=== PATIENT | female | born 1995 | race African-American/Black ===

== ENCOUNTER 2016-05-07 21:26 | Observation (INO) | payer MEDICAID, OTHER ==
[~2016-05-07] VITALS: Ht 154.9 cm; Wt 45.3 kg
[~2016-05-07 21:26] MED LIST: MACR100C PO
[2016-05-07 21:27] VITALS: BP 127/60; PULSE 112; RESP 20; TEMP 98.2; O2SAT 96
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
[2016-05-07] MEDS ORDERED: BUPIVACAINE HCL PF 0.5% 10 ML VIAL INFIL ONE (22:15)
[2016-05-07] MEDS ORDERED: LIDOCAINE HCL 1% 50 ML VIAL INFIL ONE (22:15)
[2016-05-07] MEDS ORDERED: TETANUS/DIPHTHERIA TOXOID ADULT 0.5 ML VIAL IM ONE (22:15)
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
[2016-05-07 23:34] LABS: AUTOMATED NEUTROPHIL # 6.9 TH/MM3 (1.8-7.7); BASOPHIL % 0.4 % (0.0-2.0); EOSINOPHIL % 0.5 % (0.0-4.0); HEMO FLAGS DIFF FINAL; LYMPH % 6.6 % (9.0-44.0); LYMPHOCYTE # 0.5 TH/MM3 (1.0-4.8); MEAN CELL VOLUME 88.1 FL (80.0-100.0); MEAN CORPUSCULAR HEMOGLOBIN 30.5 PG (27.0-34.0); MEAN CORPUSCULAR HGB CONC 34.6 % (32.0-36.0); NEUT % 86.5 % (16.0-70.0); PLATELET COUNT 298 TH/MM3 (150-450); RED BLOOD COUNT 4.54 MIL/MM3 (4.00-5.30); RED CELL DISTRIBUTION WIDTH 12.6 % (11.6-17.2)
[2016-05-07 23:52] LABS: BICARBONATE 25.3 MEQ/L (21.0-32.0)
[2016-05-08] VITALS (8 sets, daily range): BP systolic 94–127; BP diastolic 41–68; PULSE 70–90; RESP 16–21; TEMP 97.8–98.8; O2SAT 97–99
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
[2016-05-08] MEDS ORDERED: SODIUM CHLORIDE 0.9% FLUSH 5 ML FLUSH FLUSH PRN (00:45)
[2016-05-08] MEDS ORDERED: MORPHINE SULFATE 4 MG/ML INJ IV PUSH PRN (00:45)
[2016-05-08] MEDS ORDERED: NALOXONE HCL 0.4 MG/ML AMP IV PRN ×2 (00:45→16:00)
[2016-05-08] MEDS ORDERED: ONDANSETRON HCL 4 MG/2 ML VIAL IVP PRN (00:45)
[2016-05-08] MEDS: SODIUM CHLOR 0.9% 1000 ML INJ 1,000 ML IV SCH ×3 (00:57→16:20)
[2016-05-08] MEDS ORDERED: ONDANSETRON HCL 4 MG/2 ML VIAL IV PUSH ONE (07:52)
[2016-05-08] MEDS ORDERED: PROPOFOL 200 MG/20 ML AMP IV ONE (07:52)
[2016-05-08] MEDS ORDERED: LACTATED RINGER'S 1000 ML INJ 1,000 ML IV ONE (07:52)
[2016-05-08] MEDS ORDERED: LIDOCAINE HCL 2% 50 ML VIAL ONE (10:26)
[2016-05-08] MEDS ORDERED: BUPIVACAINE HCL PF 0.5% 30 ML VIAL ONE (10:26)
[2016-05-08] MEDS ORDERED: BACITRACIN TOP OINT 15 GM TUBE ONE (10:26)
[2016-05-08] MEDS ORDERED: DEXAMETHASONE SOD PHOS 4 MG/ML VIAL ONE (10:49)
[2016-05-08] MEDS ORDERED: MIDAZOLAM HCL 2 MG/2 ML VIAL ONE (10:49)
[2016-05-08] MEDS ORDERED: NEOMYCIN/POLYMYXIN 1 ML G.U. IRRIGANT XX ONE (11:24)
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
[2016-05-08] MEDS ORDERED: DO NOT ADM ANY ANTICOAGULANT DRUGS XX PRN (14:39)
--- NOTE | 2016-05-08 14:56 | PD.OP ---
Operative Report Preoperative Diagnosis: (1) Open fracture of finger of left hand Postoperative Diagnosis: (1) Open displaced fracture of proximal phalanx of left little finger (2) Laceration of flexor muscle, fascia and tendon of left little finger at wrist and hand level, initial encounter (3) Laceration of extensor muscle, fascia and tendon of left little finger at wrist and hand level, initial encounter (4) Digital nerve laceration, finger (5) Laceration of left little finger Procedure: exploration wash open reduction and internal fixation proximal phalanx repair of flexor digitorum profundus and flexor digitorum superificialis zone II repair extensor tendon zone IV repair ulnar digital nerve repair laceration left little finger Anesthesia: general Surgeon: Hai Gomes Rubber Tile Floor Layer(s): radha Operation and Findings: near complete amputation left little finger open displaced fracture proximal phalanx neck laceration of both FDP and FDS zone II laceration extensor apparatus zone IV laceration of the ulnar digital nerve Hai Gomes MD May 08, 2016 14:56
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
[2016-05-08] MEDS ORDERED: ACETAMINOPHEN 325 MG TAB PO PRN (16:00)
[2016-05-08] MEDS: ACETAMINOPHEN/HYDROcodone 325 MG/5 MG TAB PO PRN (19:25)
[2016-05-08] MEDS: SODIUM CHLORIDE 0.9% FLUSH 5 ML FLUSH FLUSH SCH (21:35)
[2016-05-09 00:48] VITALS: BP 107/56; PULSE 83; RESP 17; TEMP 98.8; O2SAT 100
[2016-05-09] MEDS: ACETAMINOPHEN/HYDROcodone 325 MG/7.5 MG TAB PO PRN ×3 (01:08→11:44)
[2016-05-09 05:53] VITALS: BP 129/73; PULSE 76; RESP 17; TEMP 98.1; O2SAT 100
[2016-05-09 08:19] VITALS: BP 119/74; PULSE 68; RESP 18; TEMP 98.5; O2SAT 99
[2016-05-09] MEDS: ACETAMINOPHEN/HYDROcodone 325 MG/5 MG TAB PO PRN (08:57)
[2016-05-09] MEDS: SODIUM CHLORIDE 0.9% FLUSH 5 ML FLUSH FLUSH SCH (09:00)
[2016-05-09] MEDS ORDERED: INFLUENZA VIRUS VACCINE (QUADRIVALENT) 0.5 ML SYR IM ONE (10:00)
[2016-05-09] MEDS ORDERED: CEPH-460 PO (10:26)
[2016-05-09] MEDS ORDERED: HYDR-3580 PO (10:26)
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
== END 2016-05-09 13:45 | disposition home or self-care (01) ==
LOC: NEPB 21:26 → EEVIPCON 05-08 00:35 → NEDA 05-08 00:35 → NEPFCDU 05-08 01:49 → N05B 05-08 14:26 → N05A 05-08 15:52
PROVIDERS: ADMIT Hospitalist; ATTEND Hospitalist
DX: S62.617B Displaced fracture of proximal phalanx of left little finger, initial encounter for open fracture (principal); S64.497A Injury of digital nerve of left little finger, initial encounter; S66.327A Laceration of extensor muscle, fascia and tendon of left little finger at wrist and hand level, initial encounter; S66.127A Laceration of flexor muscle, fascia and tendon of left little finger at wrist and hand level, initial encounter; S09.8XXA Other specified injuries of head, initial encounter; F17.200 Nicotine dependence, unspecified, uncomplicated; Y08.89XA Assault by other specified means, initial encounter; Y04.8XXA Assault by other bodily force, initial encounter; Z23 Encounter for immunization
CPT/HCPCS: 01810; 12001; 26356; 26418; 26735; 64831; 70450; 70486; 73140; 76000; 80048; 84703; 85025; 90471; 90686; 90714; 96365; 99285; G0378; J0690; J1100; J2250; J2405; J3010; J7030; J7120; Q2038